=== PATIENT | male | born 1940 | race Caucasian/White ===

== ENCOUNTER 2017-04-02 09:40 | Outpatient (CLI) | payer MEDICARE | END 2017-04-02 09:41 | disposition home or self-care (01) | DX: E78.6 Lipoprotein deficiency (principal); I10 Essential (primary) hypertension; H61.20 Impacted cerumen, unspecified ear; I48.91 Unspecified atrial fibrillation; I71.2 Thoracic aortic aneurysm, without rupture ==

== ENCOUNTER 2017-12-11 11:59 | Outpatient (CLI) | payer MEDICARE ==
--- NOTE | 2017-12-12 10:03 | CT Report ---
DATE OF SERVICE: 12/11/2017 CT OF SINUSES WITHOUT CONTRAST: 12/11/2017 CLINICAL INDICATION: Tinnitus, headache. TECHNIQUE: Axial CT images of the paranasal sinuses were obtained without contrast, following which, sagittal and coronal reconstructions were performed. FINDINGS: There is mucosal thickening in the maxillary sinuses bilaterally. The ostiomeatal units are patent bilaterally. Mild mucosal thickening is present in the bilateral ethmoid air cells. The sphenoid sinus and frontal sinuses are unremarkable. There is leftward septal deviation. The visualized intraorbital contents are unremarkable. IMPRESSION: CHRONIC ETHMOID AND MAXILLARY MUCOSAL THICKENING. In accordance with CT protocol optimization, one or more of the following dose reduction techniques were utilized for this exam: automated exposure control, adjustment of mA and/or KV based on patient size, or use of iterative reconstructive technique. TD: 12/12/2017 11:02
== END 2017-12-11 12:00 | disposition home or self-care (01) ==
LOC: DI 11:59
PROVIDERS: ATTEND Physician Assistant Medical
DX: H93.19 Tinnitus, unspecified ear (principal); R51 Headache
CPT/HCPCS: 70486

== ENCOUNTER 2018-09-29 12:53 | Outpatient (CLI) | payer MEDICARE | END 2018-09-29 12:54 | disposition home or self-care (01) | LOC: DI 12:53 | PROVIDERS: ATTEND Family Medicine | DX: I71.2 Thoracic aortic aneurysm, without rupture (principal); I34.0 Nonrheumatic mitral (valve) insufficiency; Q25.43 Congenital aneurysm of aorta | CPT/HCPCS: 93306 ==

== ENCOUNTER 2018-10-22 08:00 | Outpatient (CLI) | payer MEDICARE ==
[2018-10-22 19:41] LABS: THYROID STIMULATING HORMONE 1.9 uIU/mL (0.34-5.60)
[2018-10-22 19:42] LABS: FREE T4 (FREE THYROXINE) 0.45 ng/dL (0.58-1.64)
== END 2018-10-22 23:59 | disposition home or self-care (01) ==
LOC: LAB.WCP 08:00
PROVIDERS: ATTEND Family Medicine
DX: E04.1 Nontoxic single thyroid nodule (principal); I48.91 Unspecified atrial fibrillation
CPT/HCPCS: 36415; 84439; 84443; 84481

== ENCOUNTER 2018-11-27 08:00 | Outpatient (CLI) | payer MEDICARE ==
[2018-11-27 19:55] LABS: THYROID STIMULATING HORMONE 1.87 uIU/mL (0.34-5.60)
[2018-11-27 19:57] LABS: FREE T4 (FREE THYROXINE) 0.45 ng/dL (0.58-1.64)
== END 2018-11-27 23:59 | disposition home or self-care (01) ==
LOC: LAB.WCP 08:00
PROVIDERS: ATTEND Family Medicine
DX: E04.1 Nontoxic single thyroid nodule (principal)
CPT/HCPCS: 36415; 84439; 84443; 84481

== ENCOUNTER 2019-01-26 08:12 | Outpatient (CLI) | payer MEDICARE ==
[2019-01-26 08:59] LABS: ALBUMIN 3.8 g/dL (3.2-5.5); ALBUMIN/GLOBULIN RATIO 1.3 (1.0-2.2); ALKALINE PHOSPHATASE 59 IU/L (42-121); ALT ALANINE AMINOTRANSFERASE 18 IU/L (10-60); AST ASPARTATE AMINOTRANSFERASE 25 IU/L (10-42); BILIRUBIN,TOTAL 0.9 mg/dL (0.2-1.0); BUN - BLOOD UREA NITROGEN 19 mg/dL (6-20); CALCIUM 8.8 mg/dL (8.5-10.3); CARBON DIOXIDE - CO2 25 mmol/L (21-32); CHLORIDE 107 mmol/L (101-111); CHOL/HDL RATIO 5.5 (<5.0); CHOLESTEROL 197 mg/dL; CREATININE 1.3 mg/dL (0.6-1.2); GFR - MDRD 53 (>89); GLUCOSE 97 mg/dL (70-100); HDL CHOLESTEROL 36 mg/dL; LDL CHOLESTEROL,CALCULATED 124 mg/dL; LDL/HDL RATIO 3.4 (<3.6); SODIUM 140 mmol/L (135-145); TOTAL PROTEIN 6.7 g/dL (6.7-8.2); VLDL CHOLESTEROL 37 mg/dL
[2019-01-26 09:35] LABS: BILIRUBIN,URINE NEGATIVE (NEGATIVE); GLUCOSE, URINE (UA) NEGATIVE (NEGATIVE); KETONES,URINE (UA) NEGATIVE (NEGATIVE); LEUKOCYTE ESTERASE, URINE NEGATIVE (NEGATIVE); NITRITE,URINE NEGATIVE (NEGATIVE); OCCULT BLOOD,URINE NEGATIVE (NEGATIVE); PH,URINE 6.5 PH (5.0-7.5); PROTEIN,URINE NEGATIVE (NEGATIVE); UROBILINOGEN,URINE 0.2 (NORMAL) E.U./dL (NORMAL)
[2019-01-26 09:43] LABS: BACTERIA,URINE Rare /HPF (None Seen); CLARITY,URINE CLEAR (CLEAR); RBC,URINE 0-5 /HPF (0-5); SQUAMOUS EPITHELIAL CELL,UR RARE Squamous (<= Few)
[2019-01-26 09:54] LABS: THYROID STIMULATING HORMONE 2.34 uIU/mL (0.34-5.60)
[2019-01-26 09:56] LABS: FREE T4 (FREE THYROXINE) 0.46 ng/dL (0.58-1.64)
== END 2019-01-26 08:13 | disposition home or self-care (01) ==
LOC: LAB 08:12
PROVIDERS: ATTEND Family Medicine
DX: I48.2 Chronic atrial fibrillation (principal); Z12.5 Encounter for screening for malignant neoplasm of prostate; I10 Essential (primary) hypertension
CPT/HCPCS: 36415; 80053; 80061; 81001; 84439; 84443; G0103; 83721; 84153